=== PATIENT | male | born 1965 | race African-American/Black ===

== ENCOUNTER 2016-05-03 07:34 | Emergency (ER) | payer OTHER ==
[~2016-05-03] VITALS: Ht 167.6 cm; Wt 68.0 kg
[~2016-05-03 07:34] MED LIST: CEPH500C3 PO; HYDR-3534 PO; PERC10TA27 PO
[2016-05-03 07:36] VITALS: BP 177/114; PULSE 92; RESP 20; TEMP 98.2; O2SAT 96
[2016-05-03] MEDS ORDERED: LIDOCAINE 1%/EPINEPHrine 1:100,000 SOLN 20 ML VIAL INFIL ONE (08:00)
--- NOTE | 2016-05-03 08:51 | PD ---
HPI Chief Complaint: Lump, Cyst, Hernia Time Seen by Provider: 08:20 Travel History International Travel<30 days: No Contact w/Intl Traveler<30days: No Traveled to known affect area: No History of Present Illness HPI 51-year-old Afro-[place] male coming in with presumed abscess on the left buttock for the last several days. Patient felt he might of been "bitten by something". Patient has no history of abscesses in the past for MRSA. He denies fever, chills, or other constitutional symptoms. Patient does state a little bit of drainage from the area yesterday. He states it is more swollen today. Patient has pain in the area of 4 out of 10. He denies any pain with bowel movement or urination. He has no known drug allergies. PFSH Past Medical History Hx Anticoagulant Therapy: No Cardiovascular Problems: No Chemotherapy: No Cerebrovascular Accident: No Diabetes: No Musculoskeletal: Yes (back problems) Respiratory: No Immunizations Current: Yes Past Surgical History Hysterectomy: No Social History Alcohol Use: Yes Tobacco Use: Yes (1 PPD) Substance Use: No Allergies-Medications (Allergen,Severity, Reaction): Coded Allergies: No Known Allergies (Verified , 05/03/16) Reported Meds & Prescriptions Reported Meds & Active Scripts Active Ibuprofen 600 Mg Tab 600 Mg PO Q6H PRN Bactrim DS (Sulfamethoxazole-Trimethoprim) 800-160 Mg Tab 1 Tab PO BID Reported Percocet 10-325 mg (Oxycodone-Acetaminophen 10-325 mg) Oxycodone 10/325 Acetaminophen Tab 1 Tab PO Q6H Review of Systems Except as stated in HPI: all other systems reviewed are Neg General / Constitutional: No: Fever Eyes: No: Visual changes HENT: No: Headaches Cardiovascular: No: Chest Pain or Discomfort Respiratory: No: Shortness of Breath Gastrointestinal: No: Abdominal Pain Genitourinary: No: Dysuria Musculoskeletal: No: Pain Skin: No Rash Neurologic: No: Weakness Psychiatric: No: Depression Endocrine: No: Polydipsia Hematologic/Lymphatic: No: Easy Bruising Physical Exam Narrative GENERAL: Patient appears normal. Distress. SKIN: Warm and dry. Normal color. Normal turgor. Patient has a indurated tender area to the left upper medial buttock that does not involve the cleft. There is an area which appears to have slight pointing. The induration measures 2.5 cm x 5 cm in length. HEAD: Atraumatic. Normocephalic. EYES: Pupils equal and round. No scleral icterus. No injection or drainage. ENT: No nasal bleeding or discharge. Mucous membranes pink and moist. [place] clear. NECK: Trachea midline. Neck is supple nontender. CARDIOVASCULAR: Regular rate and rhythm. RESPIRATORY: No accessory muscle use. Clear to auscultation. Breath sounds equal bilaterally. MUSCULOSKELETAL: Extremities without clubbing, cyanosis, or edema. No obvious deformities. NEUROLOGICAL: Awake and alert. No obvious cranial nerve deficits. Motor grossly within normal limits. Five out of 5 muscle strength in the arms and legs. Normal speech. PSYCHIATRIC: Appropriate mood and affect; insight and judgment normal. Data Data Last Documented VS Vital Signs Date Time Temp Pulse Resp B/P Pulse Ox O2 Delivery O2 Flow Rate FiO2 05/03/16 07:36 98.2 92 20 177/114 96 Room Air Orders Lidocai-Epi 1%-1:100,000 Inj (Xylocaine- (05/03/16 08:00) MDM Medical Decision Making Medical Screen Exam Complete: Yes Emergency Medical Condition: Yes Differential Diagnosis Pilonidal cyst. Abscess. MRSA. Cellulitis. Narrative Course Patient is medically stable at time of exam. I&D of abscess is performed. See procedure note. Culture sent to the lab. Patient is treated with Bactrim DS twice a day 10 days. Patient is given ibuprofen 600 mg 4 times a day when necessary pain. Patient is return to the emergency Department in 2 days for packing removal and wound check. Patient should return sooner with any worsening problems as needed. Diagnosis Primary Impression: Left buttock abscess Patient Instructions: Abscess Incision and Drainage (DC), General Instructions Additional Instructions: Culture sent to the lab. Patient is treated with Bactrim DS twice a day 10 days. Patient is given ibuprofen 600 mg 4 times a day when necessary pain. Patient is return to the emergency Department in 2 days for packing removal and wound check. Patient should return sooner with any worsening problems as needed. Med/Other Pt SpecificInfo: Prescription(s) given, Wound Care Scripts Ibuprofen 600 Mg Vcg371 Mg PO Q6H PRN (Pain/Inflammation) #40 TAB Prov:Gali Burger MD 05/03/16 Sulfamethoxazole-Trimethoprim (Bactrim DS)800-160 Mg Tab1 Tab PO BID #20 TAB Prov:Gali Burger MD 05/03/16 Disposition: 01 DISCHARGE HOME Condition: Stable Aurelio Zaragoza May 03, 2016 08:51
[2016-05-03] MEDS ORDERED: BACT800T5 PO (08:52)
[2016-05-03] MEDS ORDERED: IBUP-232 PO (08:52)
== END 2016-05-03 09:25 | disposition home or self-care (01) ==
LOC: NEPB 07:34
DX: L02.31 Cutaneous abscess of buttock (principal); F17.200 Nicotine dependence, unspecified, uncomplicated; Z87.39 Personal history of other diseases of the musculoskeletal system and connective tissue
CPT/HCPCS: 10061

== ENCOUNTER 2016-05-05 07:43 | Emergency (ER) | payer OTHER ==
[~2016-05-05] VITALS: Ht 167.6 cm; Wt 65.0 kg
[~2016-05-05 07:43] MED LIST changes: +BACT800T5 PO; +IBUP-232 PO
[2016-05-05 07:46] VITALS: BP 143/83; PULSE 75; RESP 15; TEMP 97.9; O2SAT 98
[2016-05-05] MEDS ORDERED: CEPH-460 PO (08:21)
--- NOTE | 2016-05-05 08:26 | PD ---
HPI Chief Complaint: Skin Problem Time Seen by Provider: 08:20 Travel History International Travel<30 days: No Contact w/Intl Traveler<30days: No Traveled to known affect area: No History of Present Illness HPI Patient is a 51-year-old male who presents to emergency room for re-evaluation of left pilonidal cyst abscess. Patient reports that he had an abscess drained on May 03, 2016. Reports that he was started on Bactrim which she has been compliant with. Patient was told to return to emergency room in 2 days for reevaluation. Patient with no fevers or chills. Patient with no complaints at this time. Patient here for reevaluation of abscess. PFSH Past Medical History Hx Anticoagulant Therapy: No Cardiovascular Problems: No Chemotherapy: No Cerebrovascular Accident: No Diabetes: No Musculoskeletal: Yes (back problems) Respiratory: No Immunizations Current: Yes Tetanus Vaccination: < 5 Years Past Surgical History Hysterectomy: No Social History Alcohol Use: Yes Tobacco Use: Yes (1 PPD) Substance Use: No Allergies-Medications (Allergen,Severity, Reaction): Coded Allergies: No Known Allergies (Verified , 05/05/16) Reported Meds & Prescriptions Reported Meds & Active Scripts Active Keflex (Cephalexin) 500 Mg Cap 500 Mg PO Q6H 10 Days Ibuprofen 600 Mg Tab 600 Mg PO Q6H PRN Bactrim DS (Sulfamethoxazole-Trimethoprim) 800-160 Mg Tab 1 Tab PO BID Review of Systems General / Constitutional: No: Fever Eyes: No: Visual changes HENT: No: Headaches Cardiovascular: No: Chest Pain or Discomfort Respiratory: No: Shortness of Breath Gastrointestinal: No: Abdominal Pain Genitourinary: No: Dysuria Musculoskeletal: No: Pain Skin: Positive Other (abscess to buttock), No Rash Neurologic: No: Weakness Psychiatric: No: Depression Endocrine: No: Polydipsia Hematologic/Lymphatic: No: Easy Bruising Physical Exam Narrative GENERAL: Well-nourished, well-developed patient. SKIN: Warm and dry. HEAD: Normocephalic. EYES: No scleral icterus. No injection or drainage. NECK: Supple, trachea midline. No JVD or lymphadenopathy. CARDIOVASCULAR: Regular rate and rhythm without murmurs, gallops, or rubs. RESPIRATORY: Breath sounds equal bilaterally. No accessory muscle use. GASTROINTESTINAL: Abdomen soft, non-tender, nondistended. Patient with pilonidal cyst with abscess to left buttock - there is no drainage from abscess, there is no area of fluctuance. There is no overlying cellulitis or streaking on evaluation. MUSCULOSKELETAL: No cyanosis, or edema. BACK: Nontender without obvious deformity. No CVA tenderness. Data Data Last Documented VS Vital Signs Date Time Temp Pulse Resp B/P Pulse Ox O2 Delivery O2 Flow Rate FiO2 05/05/16 07:46 97.9 75 15 143/83 98 Orders Tetanus/Diphtheria Tox Adult (Tetanus/Di (05/05/16 08:30) [facility] Medical Decision Making Medical Screen Exam Complete: Yes Emergency Medical Condition: Yes Interpretation(s) Vital Signs Date Time Temp Pulse Resp B/P Pulse Ox O2 Delivery O2 Flow Rate FiO2 05/05/16 07:46 97.9 75 15 143/83 98 Differential Diagnosis Pilonidal cyst with abscess Narrative Course Patient is a 51-year-old male who presents to emergency room for reevaluation of pilonidal cyst. Patient was seen in the emergency room on May 03, 2016 and had his cysts drained. Patient here for reevaluation of his pilonidal cyst. Patient reports that he has been compliant with his antibiotics. Patient reports no fevers or chills or medications. Patient reports that he simply here for reevaluation of his cysts/abscess. Patient reports that his tetanus is not up-to-date, will update tetanus today. Patient with no signs of infection to his pilonidal cyst with abscess. There is no area of fluctuance. Discussed with patient need for warm compresses to allow this abscess to come to a head. Ultimately patient will have a follow-up with Gen. surgery for surgical resection of this pilonidal cyst. Signs and symptoms of when to return to the emergency room was reviewed with patient in detail. Diagnosis Primary Impression: Pilonidal cyst with abscess Referrals: Ayden Osullivan MD Patient Instructions: General Instructions Additional Instructions: Please apply warm compresses to your abscess and allow it to come to a head Please take all antibiotics as prescribed. Please return to the emergency room if symptoms progress or worsen or if you develops any fevers or chills. Please call the general surgeon as soon as possible as you will need to whole cysts removed Please take Motrin or Tylenol for pain Med/Other Pt SpecificInfo: Prescription(s) given Scripts Cephalexin (Keflex)500 Mg [id number] Mg PO Q6H 10 Days Ref 0 Prov:Mary Moffett DO 05/05/16 Disposition: 01 DISCHARGE HOME Condition: Stable Mary Moffett DO May 05, 2016 08:26
[2016-05-05] MEDS ORDERED: TETANUS/DIPHTHERIA TOXOID ADULT 0.5 ML VIAL IM ONE (08:30)
== END 2016-05-05 08:52 | disposition home or self-care (01) ==
LOC: NEPE 07:43
DX: L05.01 Pilonidal cyst with abscess (principal); Z23 Encounter for immunization; F17.210 Nicotine dependence, cigarettes, uncomplicated; F10.10 Alcohol abuse, uncomplicated
CPT/HCPCS: 90471; 90714